=== PATIENT | female | born 1950 | race Caucasian/White ===

== ENCOUNTER → 2016-09-14 | Outpatient (CLI) | payer OTHER ==
--- NOTE | 2016-09-15 11:46 | KCIC ---
Bilateral digital screening mammograms: Reason for examination: Routine screening. Comparison is made to previous studies dated 05/27/2015 and 02/05/2013. The skin and nipples show no abnormalities. There does appear to be a new nodular density in the right axilla measuring 1.7 cm in size. This may represents a prominent lymph node but recommend further evaluation with ultrasound. The breast parenchyma shows scattered fibroglandular density. (Breast density: Category B.) There are no other dominant masses, suspicious calcifications or architectural distortions. Impression: 1.7 cm circumscribed nodule in the right axilla which may represents a new right axillary lymph node. Recommend further evaluation with ultrasound. BI-RADS Category 0: Incomplete. Ultrasound follow-up is recommended. "Our facility is accredited by the [employer]." This patient's information has been entered into a reminder system for the patient to be notified with the results of her examination and a target date for the next mammogram. Electronically signed by: Carolann Dominguez MD (09/15/2016 11:43 AM)
== END | disposition home or self-care (01) ==
LOC: KCIC MAMMO 09:24
PROVIDERS: ATTEND Preventive Medicine Public Health & General Preventive Medicine
DX: Z12.31 Encounter for screening mammogram for malignant neoplasm of breast (principal)
CPT/HCPCS: G0202; 77067

== ENCOUNTER → 2016-09-22 | Outpatient (CLI) | payer OTHER ==
--- NOTE | 2016-09-22 18:56 | KCIC ---
Right breast ultrasound: Reason for examination: New nodular density on screening mammographic examination. Comparison is made to mammographic exam dated 09/14/2016. Ultrasound examination was performed of the right breast and axilla. There are benign appearing lymph nodes measuring up to 1.4 cm in greatest dimension in the right axilla. This may be reactive lymph node. No other cystic or solid nodules are seen. Recommend clinical correlation and follow-up mammogram and ultrasound in 3 months. IMPRESSION: 1.4 cm lymph node in the right axilla which probably corresponds to the area of mammographic concern but it has a benign appearance and may reflect some reactive changes. Recommend clinical correlation and reevaluation with mammograms and ultrasound in 3 months. BI-RADS Category 3: Probably Benign. "Our facility is accredited by the [employer]." This patient's information has been entered into a reminder system for the patient to be notified with the results of her examination and a target date for the next mammogram. Electronically signed by: Carolann Dominguez MD (09/22/2016 6:53 PM)
== END | disposition home or self-care (01) ==
LOC: KCIC US 09:59
PROVIDERS: ATTEND Preventive Medicine Public Health & General Preventive Medicine
DX: R92.8 Other abnormal and inconclusive findings on diagnostic imaging of breast (principal)
CPT/HCPCS: 76641

== ENCOUNTER → 2016-12-07 | Outpatient (CLI) | payer OTHER ==
--- NOTE | 2016-12-07 10:04 | RAD ---
DATE: 12/07/2016 EXAM: DIGITAL DIAGNOSTIC RT HISTORY: 6 month follow-up for right axillary lymph node COMPARISON: 09/14/2016 FINDINGS: Breast Density: SCATTERED The breast parenchyma shows scattered fibroglandular densities. Breast parenchyma level B. There are no dominant suspicious masses, suspicious microcalcifications or evidence of architectural distortion. The previously visualized prominent right axillary lymph node is not identified on today's examination. IMPRESSION: Benign findings BI-RADS CATEGORY: 2 BENIGN FINDING RECOMMENDED FOLLOW-UP: 12M 12 MONTH FOLLOW-UP PQRS compliance statement: Patient information was entered into a reminder system with a target due date 09/14/2017 for the next mammogram. Mammography is a sensitive method for finding small breast cancers, but it does not detect them all and is not a substitute for careful clinical examination. A negative mammogram does not negate a clinically suspicious finding and should not result in delay in biopsying a clinically suspicious abnormality. "Our facility is accredited by the [employer]."
== END | disposition home or self-care (01) ==
LOC: KCIC MAMMO 09:15
PROVIDERS: ATTEND Preventive Medicine Public Health & General Preventive Medicine
DX: R92.8 Other abnormal and inconclusive findings on diagnostic imaging of breast (principal)
CPT/HCPCS: G0206; 77065

== ENCOUNTER → 2017-12-21 | Outpatient (CLI) | payer OTHER ==
--- NOTE | 2017-12-21 17:20 | KCIC ---
Bilateral digital screening mammograms with 3-D tomosynthesis: Reason for examination: Routine screening. Comparison is made to previous studies dated back to 05/27/2015. Bilateral mammograms in CC and oblique projections were obtained with 2-D imaging and 3-D tomosynthesis imaging on a Siemens Inspiration unit and reviewed on the workstation. Interpretation was made with the benefit of CAD. The skin and nipples show no abnormalities. No abnormal axillary lymph nodes are seen. The breast parenchyma shows scattered fatty and fibroglandular density. (Breast density: Category B.) There continues to be some subtle nodularity at the 6:00 B position of the left breast which has not changed. There are no new dominant masses, suspicious calcifications or architectural distortion. Impression: No evidence of malignancy. Recommend routine screening. BI-RAD Category 2: Benign. "Our facility is accredited by the [employer]amm[employer]." This patient's information has been entered into a reminder system for the patient to be notified with the results of her examination and a target date for the next mammogram. Electronically signed by: Carolann Dominguez MD (12/21/2017 5:16 PM) [id number]
== END | disposition home or self-care (01) ==
LOC: KCIC MAMMO 13:51
PROVIDERS: ATTEND Preventive Medicine Public Health & General Preventive Medicine
DX: Z12.31 Encounter for screening mammogram for malignant neoplasm of breast (principal)
CPT/HCPCS: 77063; 77067

== ENCOUNTER → 2018-09-03 | Outpatient (CLI) | payer OTHER ==
--- NOTE | 2018-09-03 16:58 | KCIC ---
Bone densitometry 09/03/2018 9:00 AM Indication: Osteoporosis, menopausal. Comparison Study: None. Discussion: Bone Densitometry was performed with dual photon absorption of the lumbar spine and proximal left femur Lumbar Spine: Bone average density is 1.173g/cm2 for L1-L4. T-Score is 1.1. Proximal left femur: Bone average density is 1.01.g/cm2. T-Score is 0.6. IMPRESSION: Normal bone mineral density Note: Definitions established by the World Health Organization: Normal: T-score is -1.0 or above. Osteopenia: T-score is between -1.0 and -2.5. Osteoporosis: T-score is -2.5 or below. Electronically signed by: Brad Caceres MD (09/03/2018 4:55 PM) [id number]
== END | disposition home or self-care (01) ==
LOC: KCIC DEXA 08:58
PROVIDERS: ATTEND Preventive Medicine Public Health & General Preventive Medicine
DX: M81.0 Age-related osteoporosis without current pathological fracture (principal); Z78.0 Asymptomatic menopausal state
CPT/HCPCS: 77080

== ENCOUNTER → 2019-11-03 | Outpatient (CLI) | payer MEDICARE ==
--- NOTE | 2019-11-03 19:40 | KCIC ---
Bilateral digital screening mammograms with 3-D tomosynthesis: Reason for examination: Routine screening. Comparison is made to previous studies dated 12/13/2017, 12/07/2016 and 09/14/2016. Bilateral mammograms in CC and oblique projections were obtained with 2-D imaging and 3-D tomosynthesis imaging on a Siemens Inspiration unit and reviewed on the workstation. Interpretation was made with the benefit of CAD. The skin and nipples show no abnormalities. No abnormal axillary lymph nodes are seen. The breast parenchyma shows scattered fatty and fibroglandular density. (Breast density: Category B.) There are no dominant masses, suspicious calcifications or architectural distortion. A few benign calcifications are seen. Impression: No evidence of malignancy. Recommend routine screening. BI-RAD Category 2: Benign. "Our facility is accredited by the [employer]." This patient's information has been entered into a reminder system for the patient to be notified with the results of her examination and a target date for the next mammogram. Electronically signed by: Carolann Dominguez MD (11/03/2019 7:37 PM) [id number]
== END | disposition home or self-care (01) ==
LOC: KCIC MAMMO 10:38
PROVIDERS: ATTEND Preventive Medicine Public Health & General Preventive Medicine
DX: Z12.31 Encounter for screening mammogram for malignant neoplasm of breast (principal); N64.89 Other specified disorders of breast
CPT/HCPCS: 77063; 77067

== ENCOUNTER → 2019-12-15 | Outpatient (CLI) | payer MEDICARE ==
--- NOTE | 2019-12-15 18:09 | KCIC ---
EXAM: LUMBAR SPINE MIN 4V, PELVIS 12/15/2019 12:00 AM CLINICAL INDICATION:Chronic lower back pain, right radiculopathy COMPARISON:None TECHNIQUE:AP view the pelvis 5 views of lumbar spine FINDINGS: Pelvis: No acute fracture. Alignment is normal. There are bilateral acetabular osteophytes resulting over coverage. Joint spaces are maintained. The pubic symphysis and sacroiliac joints are within normal limits. Lumbar spine: There are 5 nonrib-bearing lumbar vertebral bodies. No acute fracture. Slight leftward curvature of the lumbar spine and rightward lateral listhesis of L2 on L3. Minimal anterolisthesis of L4 on L3 and 3 mm anterolisthesis of L4 and L5. There is moderate disc space narrowing at L2-L3 and L5-S1, and mild to moderate disc space narrowing elsewhere. Small marginal osteophytes are noted. There is mild multilevel facet arthrosis. IMPRESSION: 1. Mild degenerative joint disease of the hips without significant joint space narrowing. 2. 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 Electronically signed by: Vanessa Ballard MD (12/15/2019 6:06 PM) [id number]
== END | disposition home or self-care (01) ==
LOC: KCIC 13:54
PROVIDERS: ATTEND Preventive Medicine Public Health & General Preventive Medicine
DX: M47.26 Other spondylosis with radiculopathy, lumbar region (principal); M43.16 Spondylolisthesis, lumbar region; M48.07 Spinal stenosis, lumbosacral region; M16.0 Bilateral primary osteoarthritis of hip; M25.78 Osteophyte, vertebrae; M43.8X6 Other specified deforming dorsopathies, lumbar region; G89.29 Other chronic pain
CPT/HCPCS: 72110; 72170

== ENCOUNTER → 2020-11-03 | Outpatient (CLI) | payer MEDICARE ==
--- NOTE | 2020-11-03 14:19 | KCIC ---
Bilateral digital screening mammograms with 3-D tomosynthesis: Reason for examination: Routine screening. Comparison is made to previous studies dated back to 05/27/2015. Bilateral mammograms in CC and oblique projections were obtained with 2-D imaging and 3-D tomosynthes is imaging on a Siemens Inspiration unit and reviewed on the workstation. Interpretation was made wit h the benefit of CAD. The skin and nipples show no abnormalities. No abnormal axillary lymph nodes are seen. The breast par enchyma shows scattered fatty and fibroglandular density. (Breast density: Category B.) There are no dominant masses, suspicious calcifications or architectural distortion. Benign calcifications are pre sent. Impression: No evidence of malignancy. Recommend routine screening. BI-RAD Category 2: Benign. "Our facility is accredited by the [employer]ammography [employer]." This patient's information has been entered into a reminder system for the patient to be notified wit h the results of her examination and a target date for the next mammogram. Electronically signed by: Carolann Dominguez MD (11/03/2020 2:17 PM) [email or web address]
== END ==
LOC: KCIC MAMMO 11:19
PROVIDERS: ATTEND Preventive Medicine Public Health & General Preventive Medicine
DX: Z12.31 Encounter for screening mammogram for malignant neoplasm of breast (principal)
CPT/HCPCS: 77063; 77067

== ENCOUNTER → 2020-12-29 | Outpatient (CLI) | payer MEDICARE ==
[2020-12-29 15:21] LABS: C-REACTIVE PROTEIN 0.5 mg/L (0-3.3)
[2020-12-30 01:16] LABS: HEMOGLOBIN A1C 5.7 % (4.8-5.6)
[2020-12-31 14:12] LABS: ALBUM 4.3 g/dL (2.9-4.4); ALPHA 1 0.2 g/dL (0.0-0.4); ALPHA 2 0.7 g/dL (0.4-1.0); BETA 1.1 g/dL (0.7-1.3); GAMMA 0.8 g/dL (0.4-1.8); PROTEIN TOTAL 7.2 g/dL (6.0-8.5); SPEP AG RATIO 1.5 (0.7-1.7)
[2020-12-31 20:13] LABS: ANA INTERP Negative (.)
== END ==
LOC: LAB 14:07
PROVIDERS: ATTEND Nurse Practitioner Family
DX: G25.81 Restless legs syndrome (principal); M79.2 Neuralgia and neuritis, unspecified; R53.1 Weakness
CPT/HCPCS: 36415; 82607; 82728; 82746; 83036; 83540; 83550; 84165; 84443; 85651; 86038; 86140